=== PATIENT | male | born 1950 | race Caucasian/White ===

== ENCOUNTER → 2020-12-06 | Outpatient (CLI) | payer OTHER ==
[~2020-12-06] MED LIST: ASPI81CH PO; FERR325 PO; Flomax0.4 MG PO; LISI5 PO; TAMS.4ER PO; VICODIN 5-3001 EACH PO; Zofran Odt4 MG SL
== END | disposition home or self-care (01) ==
LOC: LAB 14:33 → LAB SHORT 14:33
DX: N30.90 Cystitis, unspecified without hematuria (principal)
CPT/HCPCS: 87077; 87086; 87186

== ENCOUNTER → 2023-08-11 | Outpatient (CLI) | payer MEDICARE | END | disposition home or self-care (01) | LOC: LAB 07:42 → LAB SHORT 07:42 | DX: L82.1 Other seborrheic keratosis (principal) | CPT/HCPCS: 88305 ==

== ENCOUNTER 2023-11-23 08:08 | Day surgery (SDC) | payer MEDICARE ==
[~2023-11-23] VITALS: Ht 177.8 cm; Wt 77.8 kg
[~2023-11-23 08:08] MED LIST changes: +Cialis5 MG
[2023-11-23] MEDS ORDERED: propofoL 50 ML IV ONE (08:18)
[2023-11-23] MEDS ORDERED: Lactated Ringer's 1,000 ML IV ONE ×2 (08:18→08:53)
[2023-11-23] MEDS ORDERED: YUMVS VITAMIN25 MCG (08:51)
[2023-11-23] MEDS ORDERED: TUMS500 MG (08:51)
[2023-11-23] MEDS ORDERED: MULVITA (08:51)
[2023-11-23 10:55] VITALS: BP 95/71
== END 2023-11-23 10:30 | disposition home or self-care (01) ==
LOC: ORSCSDS 08:08
PROVIDERS: Internal Medicine Gastroenterology
PROC: 0DBK8ZX Excision of Ascending Colon, Via Natural or Artificial Opening Endoscopic, Diagnostic (ICD-10-PCS; principal; 2023-11-23 09:15)
DX: Z12.11 Encounter for screening for malignant neoplasm of colon (principal); K57.30 Diverticulosis of large intestine without perforation or abscess without bleeding; D37.4 Neoplasm of uncertain behavior of colon; Z86.010 Personal history of colon polyps; N40.0 Benign prostatic hyperplasia without lower urinary tract symptoms; I12.9 Hypertensive chronic kidney disease with stage 1 through stage 4 chronic kidney disease, or unspecified chronic kidney disease; N18.9 Chronic kidney disease, unspecified; E78.5 Hyperlipidemia, unspecified; Z79.899 Other long term (current) drug therapy
CPT/HCPCS: J2704; J7120

== ENCOUNTER 2024-03-23 08:33 | Day surgery (SDC) | payer MEDICARE ==
[~2024-03-23] VITALS: Ht 177.8 cm; Wt 83.6 kg
[2024-03-23] VITALS (13 sets, daily range): BP systolic 125–165; BP diastolic 83–99
[~2024-03-23 08:33] MED LIST changes: +DICY20 PO; +MULVITA; +ONDA4ODT MM; +TUMS500 MG; +YUMVS VITAMIN25 MCG
[2024-03-23] MEDS ORDERED: Dexamethasone Sod Phos 10 MG/ML 1ML VIAL ONE (08:59)
[2024-03-23] MEDS ORDERED: FentaNYL Citrate 50 MCG/ML 2 ML Injection ONE (08:59)
[2024-03-23] MEDS ORDERED: Ondansetron HCl 2 MG / ML 2ML Vial ONE (08:59)
[2024-03-23] MEDS ORDERED: propofoL 20 ML IV ONE (08:59)
[2024-03-23] MEDS ORDERED: Lactated Ringer's 1,000 ML IV SCH (09:10)
[2024-03-23] MEDS ORDERED: Bupivacaine 0.5% HCl 5 MG/ML 30MLVIAL ONE (09:37)
--- NOTE | 2024-03-23 09:42 | NUR ---
Ambulatory in Day Surgery History, Chart, Medications and Allergies reviewed before start of procedure.Lungs clear T/O to Auscultation. Patient confirms NPO status and agrees with scheduled surgery. Patient reports completing Chlorhexadine shower X2 prior to admission to hospital.Surgical site prepped with 2% Chlorhexidine cloth wipe. Patient States Post-Procedure ride home has been arranged.
[2024-03-23] MEDS ORDERED: CeFAZolin Sodium 2,000 MG in NS 100 ML IV SCH (09:45)
[2024-03-23] MEDS ORDERED: HYDROmorphone HCl/Pf 1MG SYR ONE (10:33)
[2024-03-23] MEDS ORDERED: Phenylephrine HCl 100 MCG/ML-NS 10MLSYR (1MG/10ML) ONE (10:44)
[2024-03-23] MEDS ORDERED: Sugammadex Sodium 200 MG/2ML SDV (100 MG/ML) ONE (10:47)
[2024-03-23] MEDS ORDERED: HYDROcodone 5-APAP 325 TAB PO PRN (12:05)
--- NOTE | 2024-03-23 13:00 | NUR ---
1205 RECIEVED PATIENT FROM PACU,SLEEP, OXYGENON N/C @2L SATS 93-94%. WATER AND PUDDING GIVEN DAISY WELL. ENC DB. ABDOMINAL BINDER OVER 2X2 JN AT UMBILICUS AND COVERED WITH OCCLUSIVE DRESSING. CORNER OF JN HAS SMALL AMT RED DRAINAGE. 1215 AT BEDSIDE, ATTEMPT WEENING 02. SATS DROP TO 89% ENC DB 1220 OXYGEN 2L N/C REPLACED,PO PAIN MED GIVEN 1230 ATTEMP WEANING O2, SATS DROP BELOW 90% O2 REPLACED. PT SLEEPY 1245 ATTEMPT WEANING O2 SATS CONTINUE TO DROP TO 88-90% O2 A22L REPLACED 1300 TOOK PAIN RX TO PHARMACY. PT DOZING
--- NOTE | 2024-03-23 14:43 | NUR ---
1430 VOIDED WITH OUT DIFFICULTY. SATS CONSISTENTLY 94% ON R/A. DC INSTRUCTIONS GIVEN TO PATIENT AND BOTH VERBALIZE UNSERSTANDING. 1435 DC HOME TO CAR VIA WC, CARE TURNED OVER TO
== END 2024-03-23 14:35 | disposition home or self-care (01) ==
LOC: ORSCMMR 08:33 → ORD 10:00 → ORSCMMR 14:35
PROVIDERS: Surgery
PROC: 0WUF0JZ Supplement Abdominal Wall with Synthetic Substitute, Open Approach (ICD-10-PCS; principal; 2024-03-23 10:00)
DX: K42.9 Umbilical hernia without obstruction or gangrene (principal); N40.0 Benign prostatic hyperplasia without lower urinary tract symptoms; I12.9 Hypertensive chronic kidney disease with stage 1 through stage 4 chronic kidney disease, or unspecified chronic kidney disease; N18.9 Chronic kidney disease, unspecified; E78.5 Hyperlipidemia, unspecified; Z79.899 Other long term (current) drug therapy
CPT/HCPCS: A9270; C1781; J0690; J1100; J1171; J2371; J2405; J2704; J3010; J7120